=== PATIENT | female | born 1985 | race Caucasian/White ===

== ENCOUNTER 2025-05-04 09:04 | Emergency (ER) | payer OTHER, SELFPAY ==
[2025-05-04 09:18] VITALS: BP 141/81; PULSE 74; RESP 16; TEMP 36.3; O2SAT 99
--- NOTE | 2025-05-04 09:39 | ED_ITS ---
HPI - Skin/Abscess/Foreign Bdy General Chief complaint: Skin/Abscess/Foreign Body Stated complaint: RASH ON HANDS Time Seen by Provider: 05/04/25 09:30 Source: patient and RN notes reviewed Mode of arrival: ambulatory Limitations: no limitations History of Present Illness HPI narrative: Patient presents today with a 3 day history of severely pruritic rash and bumps to the bilateral hands that continues to spread. She has tried oral Benadryl and topical cortisone without relief. Denies any new exposures or products at home. Related Data Allergies Allergy/AdvReac Type Severity Reaction Status Date / Time No Known Allergies Allergy Verified 05/04/25 09:16 PMFSH Comments At time of signature, I have reviewed and agree with nursing past medical, surgical, social and family history unless otherwise noted. Please see nursing chart for further information. There is no relevant family history pertinent to the presenting complaint Exam Narrative: GENERAL: Well-appearing, well-nourished, and in no acute distress. HEAD: Normocephalic, atraumatic. EYES: EOMI. No redness or drainage. ENT: Mucous membranes pink and moist. NECK: Normal AROM. CHEST: No respiratory distress. EXTREMITIES: Normal range of motion. No edema. SKIN: Warm, dry. Capillary refill normal. Normal skin turgor. Diffuse skin colored tiny vesicles and deep-seated bumps over the fingers, palm side, and vol ar aspect of the wrists. No erythema, edema, drainage. NEURO: No focal deficits. Alert and oriented x3. Gait steady. PSYCH: Normal affect. No signs of depression or anxiety. Course Course Level of Care: Express Care Visit Vital Signs Vital signs: Vital Signs Temperature 97.4 F L 05/04/25 09:18 Pulse Rate 74 05/04/25 09:18 Respiratory Rate 16 05/04/25 09:18 Blood Pressure 141/81 H 05/04/25 09:18 Pulse Oximetry 99 05/04/25 09:18 Temperature 97.4 F L 05/04/25 09:18 Pulse Rate 74 05/04/25 09:18 Respiratory Rate 16 05/04/25 09:18 Blood Pressure 141/81 H 05/04/25 09:18 Pulse Oximetry 99 05/04/25 09:18 Reviewed MDM - Skin/Abscess/Foreign Bdy MDM Narrative Medical decision making narrative: Patient is a 39-year-old female patient presents today with severely pruritic rash to her hands x3 days without any known etiology. She has tried [id number] treatment without relief. Exam consistent with dyshidrotic eczema without signs of bacterial infection. Prescription for 0.5% triamcinolone sent to pharmacy with cautions regarding face and genitalia. Patient states she has a follow-up appointment with her PCP tomorrow. Vital signs stable. Anticipatory guidance given. Differential Diagnosis Differential diagnosis: Likely abscess of skin or subcutaneous tissue, cellulitis, eczema, impetigo and contact dermatitis Critical Care Time Critical Care Time Critical Care Time: No Discharge Plan Discharge Clinical Impression: Dyshidrotic eczema Patient Disposition: Home Condition: Stable Instructions: Dyshidrotic Eczema (ED) Additional Instructions: Please use the steroid cream as directed. Do not apply to the face or genitalia. Follow-up with your PCP with any additional concerns. Patient Language: Mongolian Prescriptions: New triamcinolone acetonide 0.5 % cream 1 applic topical BID Qty: 15 0RF Follow-up/Referrals: Ivory,Nayely Christiansen MD [Primary Care Provider] - Time of Disposition: 09:43
== END 2025-05-04 09:49 | disposition home or self-care (01) ==
PROVIDERS: Emergency Provider Nurse Practitioner; PCP Family Medicine
DX: L30.1 Dyshidrosis [pompholyx] (principal); I10 Essential (primary) hypertension
CPT/HCPCS: 99203; G0463

== ENCOUNTER 2025-10-21 10:46 | Emergency (ER) | payer OTHER, SELFPAY ==
[2025-10-21 11:12] VITALS: BP 147/96; PULSE 103; RESP 16; TEMP 36.4; O2SAT 100
--- NOTE | 2025-10-21 11:33 | ED.URI ---
HPI - URI/Sore Throat General Chief Complaint: Upper Respiratory Infection Stated Complaint: Upper Respiratory Symptoms Time Seen by Provider: 10/21/25 11:20 Source: patient and RN notes reviewed Mode of arrival: ambulatory Limitations: no limitations History of Present Illness HPI Narrative: 40-year-old female presents Express Care complaining of upper respiratory symptoms for 8 days. She reports cough, congestion, sinus pressure, mucopurulent nasal drainage that is not getting much better. Patient reports symptoms are getting worse. Patient has any fevers body aches,, chills, nausea, vomiting, diarrhea, chest pain, breathing problems, any other symptoms. Patient says her daughter tested positive for RSV is currently being hospitalized. Related Data Home Medications ?Medication ?Instructions ?Recorded ?Confirmed ?Last Taken ?Type atorvastatin 20 mg tablet mg 10/21/25 Unknown History metformin 1,000 mg tablet mg 10/21/25 Unknown History olmesartan 20 mg tablet mg 10/21/25 Unknown History sertraline 100 mg tablet mg 10/21/25 Unknown History tirzepatide 12.5 mg/0.5 mL mg subcut 10/21/25 Unknown History subcutaneous pen injector (Mounjaro) Allergies Allergy/AdvReac Type Severity Reaction Status Date / Time No Known Allergies Allergy Verified 10/21/25 11:14 Review of Systems Review of Systems: CONSTITUTIONAL: Denies fever, chills, or sweats. EYES: Denies visual changes, redness, or discharge. ENT: Denies rhinorrhea, sore throat, or otalgia. Positive for congestion, nasal drainage, sinus pressure. CARDIOVASCULAR: Denies chest pain, palpitations, or edema. RESPIRATORY: Positive for cough. Negative for wheezing or dyspnea. GASTROINTESTINAL: Denies abdominal pain, nausea, vomiting, or diarrhea. GENITOURINARY: Denies dysuria or hematuria. SKIN: Denies rash or itching. MUSCULOSKELETAL: Denies back pain, joint pain, or myalgia. NEUROLOGIC: Denies headache, numbness, or weakness. PSYCHIATRIC: Denies anxiety or depression. All other systems reviewed are negative, except as documented in HPI. PMFSH Comments At the time of my signature, I reviewed and agree with the nursing past medical, surgical, social, and family history. There is no relevant family history pertinent to the patient complaint. Exam Narrative: GENERAL: This is a well-nourished, well-developed adult, in no apparent distress. They are non ill-appearing, nontoxic appearing. HEAD: normocephalic, atraumatic. EYES: Sclera clear/white. Conjunctiva normal. Vision is grossly intact. Extraocular movements intact EARS: External ears normal, auditory canals clear and without drainage, TMs normal without perforation. Hearing grossly intact. NOSE: External nose normal with no obvious nasal discharge, nasal turbinates erythematous with exudate, no rhinorrhea. Maxillary and frontal sinus tenderness to palpation. THROAT: Mucous membranes moist, posterior pharynx erythematous with PND.. Uvula midline. NECK: Neck supple, non-tender without lymphadenopathy, masses or thyromegaly. CARDIOVASCULAR: Regular rate and rhythm without murmurs, gallops, or rubs. RESPIRATORY: Clear to auscultation. Breath sounds equal bilaterally. No wheezes, rales, or rhonchi. SKIN: warm, Dry, intact with no suspicious lesions or rash, good texture and turgor. NEURO: awake, alert, and oriented to person, place and time. There were no obvious focal neurologic abnormalities. EXTREMITIES: No joint tenderness, effusion, or edema noted. BACK: Nontender without deformity. Course Course Level of Care: Express Care Visit Vital Signs Vital signs: Vital Signs Temperature 97.6 F 10/21/25 11:12 Pulse Rate 103 H 10/21/25 11:12 Respiratory Rate 16 10/21/25 11:12 Blood Pressure 147/96 H 10/21/25 11:12 Pulse Oximetry 100 10/21/25 11:12 Temperature 97.6 F 10/21/25 11:12 Pulse Rate 103 H 10/21/25 11:12 Respiratory Rate 16 10/21/25 11:12 Blood Pressure 147/96 H 10/21/25 11:12 Pulse Oximetry 100 10/21/25 11:12 [facility] Narrative Medical decision making narrative: Rapid COVID and flu were negative. Given patient's length of symptoms likely has bacterial sinusitis. Will treat with Augmentin. Discussed physical exam findings. Advised supportive measures and signs/symptoms to go to the ER. Pt is appropriate for outpt treatment and f/u. Differential Diagnosis Differential Diagnosis: Differential diagnostic considerations for upper respiratory infection include upper respiratory infection, croup, otitis media, sinusitis, viral infection, bronchitis, influenza, pharyngitis, strep, uvulitis. Lab Data [facility] Lab Attestation statement: I personally reviewed the patient's lab results. Critical Care Time Critical Care Time Critical Care Time: No Discharge Plan Discharge Clinical Impression: Sinusitis Qualifiers: Sinusitis location: unspecified location Chronicity: acute Recurrence: non-recurrent Qualified Code(s): J01.90 - Acute sinusitis, unspecified Patient Disposition: Home Condition: Stable Instructions: Antibiotic Form, Sinusitis (ED) Additional Instructions: Take the antibiotics as directed and complete the course even if you start to feel better. You may use a Neti pot saline rinse 3 times a day with lukewarm distilled water Continue to take Tylenol or Motrin as needed for fever or pain. Follow instructions on the bottle. Use a humidifier or vaporizer at night. Drink plenty of water. 8-10 glasses per day. Use flonase 2 times per day for 5 days then as needed Take mucinex 2 times per day and be sure to take with 8oz of water. Follow up with Primary provider in 3-5 days Please go to the ER if he develops any difficulty breathing, chest pain, vomiting worsening symptoms, or any other concerns Patient Language: Sinhala Prescriptions: New amoxicillin-pot clavulanate 875-125 mg tablet 1 tablet PO Q12H 7 Days Qty: 14 0RF No Action atorvastatin 20 mg tablet sertraline 100 mg tablet metformin 1,000 mg tablet olmesartan 20 mg tablet Mounjaro 12.5 mg/0.5 mL pen injector SUBCUT Follow-up/Referrals: Ivory,Nayely Christiansen MD [Primary Care Provider, Unknown] Time of Disposition: 11:33
[2025-10-21 11:39] LABS: EDCOVIDSCREEN Negative (Negative); EDINFLUASCREEN Negative (Negative); EDINFLUBSCREEN Negative (Negative)
== END 2025-10-21 11:36 | disposition home or self-care (01) ==
PROVIDERS: PCP Family Medicine
DX: J01.90 Acute sinusitis, unspecified (principal); Z20.822 Contact with and (suspected) exposure to COVID-19; I10 Essential (primary) hypertension; E11.9 Type 2 diabetes mellitus without complications; Z79.84 Long term (current) use of oral hypoglycemic drugs; Z79.85 Long-term (current) use of injectable non-insulin antidiabetic drugs; E78.00 Pure hypercholesterolemia, unspecified; F32.A Depression, unspecified
CPT/HCPCS: 87426; 87804; 99213; G0463